=== PATIENT | male | born 1965 | race Caucasian/White ===

== ENCOUNTER 2019-10-30 20:15 | Emergency (ER) | payer SELFPAY ==
[~2019-10-30] VITALS: Ht 175.3 cm; Wt 76.2 kg
[2019-10-30 20:27] VITALS: Ht 175.3 cm; Wt 76.2 kg
[2019-10-30 21:42] LABS: PLATELET COUNT 233 x10^3mcL (130-400); RED CELL DISTRIBUTION WIDTH 13.4 % (11.5-14.5)
[2019-10-30 21:54] LABS: CALCIUM 9.2 mg/dL (8.5-10.1); CARBON DIOXIDE 32.2 mmol/L (21-32); CHLORIDE SERUM 105 mmol/L (98-107); GFR1 > 60 mL/min; GLUCOSE SERUM 117 mg/dL (74-106); POTASSIUM SERUM 4.4 mmol/L (3.5-5.1); SODIUM SERUM 141 mmol/L (136-145)
[2019-10-30 21:58] LABS: ALBUMIN 4.5 g/dL (3.4-5.0); ALKALINE PHOSPHATASE 39 U/L (46-116); ALT/SGPT 19 U/L (16-63); AMYLASE 67 U/L (25-115); AST/SGOT 15 U/L (15-37); BILIRUBIN TOTAL 0.9 mg/dL (0.20-1.00); LIPASE 311 IU/L (73-393); TOTAL PROTEIN, SERUM 8.1 g/dL (6.4-8.2)
[2019-10-31 01:39] VITALS: BP 153/83
== END 2019-10-31 01:39 | disposition home or self-care (01) ==
LOC: ED 20:15
DX: K80.20 Calculus of gallbladder without cholecystitis without obstruction (principal); R42 Dizziness and giddiness
CPT/HCPCS: 36415; Q0092